=== PATIENT | male | born 1990 | race Caucasian/White ===

== ENCOUNTER 2018-01-25 16:10 | Emergency (ER) | payer BC ==
[~2018-01-25] VITALS: Ht 190.5 cm; Wt 127.4 kg
[2018-01-25 16:26] VITALS: TEMP 37.4; Ht 190.5 cm; Wt 127.4 kg
[2018-01-25] MEDS ORDERED: SODIUM CHLORIDE 0.9% 1000ML 1,000 ML IV STA (18:24)
[2018-01-25] MEDS ORDERED: KETOROLAC TROMETHAMINE 30 MG/ML VIAL IV STA (18:24)
[2018-01-25] MEDS ORDERED: OPTIRAY 320 IV PRN (18:30)
[2018-01-25 18:43] LABS: BASO % 0.1 %; BASO ABS # 0.01 K/uL (0-0.2); EOS % 1.3 %; EOS ABS # 0.15 K/uL (0-0.5); HEMATOCRIT 45.4 % (42-52); HEMOGLOBIN 15.6 g/dL (14.0-18.0); IG# 0.04 K/uL (0.00-0.02); LYMPH % 26.1 %; LYMPH ABS # 3.04 K/uL (1.2-3.4); MEAN CELL VOLUME 85.8 fL (80-100); MEAN CORPUSCULAR HEMOGLOBIN 29.5 pg (25-34); MEAN CORPUSCULAR HGB CONC 34.4 g/dl (32-36); MEAN PLATELET VOLUME 10.3 fL (7.4-10.4); MONO % 9.2 %; MONO ABS # 1.07 K/uL (0.11-0.59); NEUT ABS # 7.32 K/uL (1.4-6.5); PLATELET COUNT 293 K/uL (130-400); RED CELL DISTRIBUTION WIDTH CV 12.9 % (11.5-14.5); RED CELL DISTRIBUTION WIDTH SD 40.6 fL (36.4-46.3); WHITE BLOOD COUNT 11.63 K/uL (4.8-10.8)
[2018-01-25 19:05] LABS: ALBUMIN 4.2 gm/dl (3.4-5.0); CREATININE 1.3 mg/dl (0.60-1.40); POTASSIUM 3.9 mmol/L (3.5-5.1); TOTAL PROTEIN 8.3 gm/dl (6.4-8.2)
--- NOTE | 2018-01-25 20:39 | DIAGNOSTIC IMAGING REPORT ---
ABD/PELVIS IV CONTRAST ONLY CLINICAL HISTORY: 27 years-old Male presenting with abd pain infra umbilical . TECHNIQUE: Multidetector CT of the abdomen and pelvis was performed after the administration of intravenous contrast. IV contrast: 114 mL of Optiray 320. A dose lowering technique was used consistent with the principles of ALARA (as low as reasonably achievable). COMPARISON: None. CT DOSE (mGy.cm): The estimated cumulative dose is 964.07 mGy.cm. 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 Lung bases: Minimal basilar opacities, likely atelectasis. Normal heart size. No pericardial or pleural effusion. Liver: Normal morphology. No liver lesion. Patent hepatic vasculature. Biliary: No intrahepatic or extrahepatic biliary ductal dilatation. Normal gallbladder. Pancreas: Normal. Spleen: Normal. Adrenal glands: Normal. Kidneys and ureters: 3.7 cm lesion arising from the lateral aspect of the upper pole the right kidney with a density not consistent with cyst. This lesion may represent a complex cyst with solid components given the heterogeneity of its appearance. No additional lesion. No nephrolithiasis. No hydronephrosis. Bladder: Incompletely evaluated secondary to underdistention. Pelvic organs: Prostate and seminal vesicles normal. Bowel: Normal appendix. No bowel obstruction. Nonspecific intramural fat deposition and extended length of distal ileum. Peritoneal cavity: Infiltration of fat in the anterior left mid abdomen (series 3 image 262). No free intraperitoneal fluid or gas. Lymph nodes: No enlarged lymph nodes in the abdomen or pelvis. Vasculature: Aorta and IVC patent and normal in caliber. Abdominal wall: Small fat-containing umbilical hernia. Musculoskeletal: Normal. IMPRESSION: 1. Focus of infiltrated fat in the anterior left mid abdomen. This may represent an omental infarct or epiploic appendagitis. 2. Extensive intramural fat deposition in the distal ileum. This is nonspecific but can be seen in the setting of chronic inflammation, long-term steroid exposure, prior chemotherapy, or obesity among other etiologies. 3. 3.7 cm lesion in the right kidney, which may represent a complex partially cystic partially solid cyst versus less likely a proteinaceous or hemorrhagic cyst. Definitive characterization with contrast-enhanced renal MRI recommended. Urologic consultation is also necessary. Primary care physician (PCP) and/or surgical follow-up recommended until clinical, surgical, or pathologic diagnosis established. Electronically signed by: Alejandro Albright M.D. 01/25/2018 8:37 PM Dictated Date/Time: 01/25/2018 8:28 PM
[2018-01-25 20:46] VITALS: BP 108/70; PULSE 81; O2SAT 97
--- NOTE | 2018-01-26 00:25 | EMERGENCY ROOM VISIT NOTE ---
History Report prepared by Stacia: Joanna Gupta Under the Supervision of: Dr. Ace Farrell D.O. First contact with patient: 18:16 Chief Complaint: ABDOMINAL PAIN Stated Complaint: STOMACH PAIN History of Present Illness The patient is a 27 year old male who presents to the Emergency Room with complaints of constant lower abdominal pain beginning this morning. He notes he has no appetite, but denies any nausea or vomiting. The patient reports the pain began on both sides of his abdomen but is now worst in the left side, and notes it does not radiate to his back. He mentions he was seen at [facility] and referred to the ED for concerns about his appendix. The patient states he still has both his appendix and gallbladder. He notes bending over, laughing, and inhaling worsen his pain. He denies pain or swelling in testicles, or pain with urination. The patient denies any history of diverticulitis or abdominal surgery. Source of History: patient Onset: this morning Position: abdomen Timing: constant Modifying Factors (Worsening): breathing, other (bending over, laughing) Associated Symptoms: No back pain, No urinary symptoms Note: Denies: pain or swelling in testicles Review of Systems See HPI for pertinent positives & negatives. A total of 10 systems reviewed and were otherwise negative. Past Medical & Surgical Medical Problems: (1) No chronic problems Epiploic appendagitis Kidney mass Family History No pertinent family history stated. Social History Smoking Status: Former Smoker Smokeless Tobacco Use: No Occupation Status: employed Current/Historical Medications No Active Prescriptions or Reported Meds Allergies Coded Allergies: No Known Allergies (Unverified , 01/25/18) Physical Exam Vital Signs Date Time Temp Pulse Resp B/P (MAP) Pulse Ox O2 Delivery O2 Flow Rate FiO2 01/25/18 20:46 81 16 108/70 97 Room Air 01/25/18 18:48 82 157/84 96 Room Air 01/25/18 16:26 37.4 96 18 170/110 96 Room Air Physical Exam GENERAL: Sitting up in bed, alert, well appearing, well nourished, no distress, non-toxic, slightly uncomfortable. EYE EXAM: normal conjunctiva. OROPHARYNX: no exudate, no erythema, lips, buccal mucosa, and tongue normal and mucous membranes are moist NECK: supple, no nuchal rigidity, no adenopathy, non-tender LUNGS: Clear to auscultation. Normal chest wall mechanics HEART: no murmurs, S1 normal and S2 normal ABDOMEN: abdomen soft, tender to palpation infraumbilically, normo-active bowel sounds, no masses, no rebound or guarding. BACK: Back is symmetrical on inspection and there is no deformity, no midline tenderness, no CVA tenderness. SKIN: no rashes and no bruising UPPER EXTREMITIES: upper extremities are grossly normal. LOWER EXTREMITIES: No pitting edema. NEURO EXAM: Normal sensorium, cranial nerves II-XII grossly intact, normal speech, no gross weakness of arms, no gross weakness of legs. Medical Decision & Procedures ER Provider Diagnostic Interpretation: Radiology results as stated below per my review and the radiologist's interpretation: ABD/PELVIS IV CONTRAST ONLY CLINICAL HISTORY: 27 years-old Male presenting with abd pain infra umbilical . TECHNIQUE: Multidetector CT of the abdomen and pelvis was performed after the administration of intravenous contrast. IV contrast: 114 mL of Optiray 320. A dose lowering technique was used consistent with the principles of ALARA (as low as reasonably achievable). COMPARISON: None. CT DOSE (mGy.cm): The estimated cumulative dose is 964.07 mGy.cm. 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 Lung bases: Minimal basilar opacities, likely atelectasis. Normal heart size. No pericardial or pleural effusion. Liver: Normal morphology. No liver lesion. Patent hepatic vasculature. Biliary: No intrahepatic or extrahepatic biliary ductal dilatation. Normal gallbladder. Pancreas: Normal. Spleen: Normal. Adrenal glands: Normal. Kidneys and ureters: 3.7 cm lesion arising from the lateral aspect of the upper pole the right kidney with a density not consistent with cyst. This lesion may represent a complex cyst with solid components given the heterogeneity of its appearance. No additional lesion. No nephrolithiasis. No hydronephrosis. Bladder: Incompletely evaluated secondary to underdistention. Pelvic organs: Prostate and seminal vesicles normal. Bowel: Normal appendix. No bowel obstruction. Nonspecific intramural fat deposition and extended length of distal ileum. Peritoneal cavity: Infiltration of fat in the anterior left mid abdomen (series 3 image 262). No free intraperitoneal fluid or gas. Lymph nodes: No enlarged lymph nodes in the abdomen or pelvis. Vasculature: Aorta and IVC patent and normal in caliber. Abdominal wall: Small fat-containing umbilical hernia. Musculoskeletal: Normal. IMPRESSION: 1. Focus of infiltrated fat in the anterior left mid abdomen. This may represent an omental infarct or epiploic appendagitis. 2. Extensive intramural fat deposition in the distal ileum. This is nonspecific but can be seen in the setting of chronic inflammation, long-term steroid exposure, prior chemotherapy, or obesity among other etiologies. 3. 3.7 cm lesion in the right kidney, which may represent a complex partially cystic partially solid cyst versus less likely a proteinaceous or hemorrhagic cyst. Definitive characterization with contrast-enhanced renal MRI recommended. Urologic consultation is also necessary. Primary care physician (PCP) and/or surgical follow-up recommended until clinical, surgical, or pathologic diagnosis established. Electronically signed by: Alejandro Albright M.D. 01/25/2018 8:37 PM Dictated Date/Time: 01/25/2018 8:28 PM Laboratory Results 01/25/18 18:32 Red Blood Count 5.29, Mean Corpuscular Volume 85.8, Mean Corpuscular Hemoglobin 29.5, Mean Corpuscular Hemoglobin Concent 34.4, Mean Platelet Volume 10.3, Neutrophils (%) (Auto) 63.0, Lymphocytes (%) (Auto) 26.1, Monocytes (%) (Auto) 9.2, Eosinophils (%) (Auto) 1.3, Basophils (%) (Auto) 0.1, Neutrophils # (Auto) 7.32, Lymphocytes # (Auto) 3.04, Monocytes # (Auto) 1.07, Eosinophils # (Auto) 0.15, Basophils # (Auto) 0.01 01/25/18 18:32 Test 01/25/18 18:32 White Blood Count 11.63 K/uL (4.8-10.8) Red Blood Count 5.29 M/uL (4.7-6.1) Hemoglobin 15.6 g/dL (14.0-18.0) Hematocrit 45.4 % (42-52) Mean Corpuscular Volume 85.8 fL (80-100) Mean Corpuscular Hemoglobin 29.5 pg (25-34) Mean Corpuscular Hemoglobin Concent 34.4 g/dl (32-36) Platelet Count 293 K/uL (130-400) Mean Platelet Volume 10.3 fL (7.4-10.4) Neutrophils (%) (Auto) 63.0 % Lymphocytes (%) (Auto) 26.1 % Monocytes (%) (Auto) 9.2 % Eosinophils (%) (Auto) 1.3 % Basophils (%) (Auto) 0.1 % Neutrophils # (Auto) 7.32 K/uL (1.4-6.5) Lymphocytes # (Auto) 3.04 K/uL (1.2-3.4) Monocytes # (Auto) 1.07 K/uL (0.11-0.59) Eosinophils # (Auto) 0.15 K/uL (0-0.5) Basophils # (Auto) 0.01 K/uL (0-0.2) RDW Standard Deviation 40.6 fL (36.4-46.3) RDW Coefficient of Variation 12.9 % (11.5-14.5) Immature Granulocyte % (Auto) 0.3 % Immature Granulocyte # (Auto) 0.04 K/uL (0.00-0.02) Urine Color DK YELLOW Urine Appearance CLEAR (CLEAR) Urine pH 5.5 (4.5-7.5) Urine Specific [facility] 1.026 (1.000-1.030) Urine Protein NEG (NEG) Urine Glucose (UA) NEG (NEG) Urine Ketones TRACE (NEG) Urine Occult Blood NEG (NEG) Urine Nitrite NEG (NEG) Urine Bilirubin NEG (NEG) Urine Urobilinogen NEG (NEG) Urine Leukocyte Esterase NEG (NEG) Urine WBC (Auto) 0 /hpf (0-5) Urine RBC (Auto) 0-4 /hpf (0-4) Urine Hyaline Casts (Auto) 0 /lpf (0-5) Urine Epithelial Cells (Auto) 0-5 /lpf (0-5) Urine Bacteria (Auto) NEG (NEG) Anion Gap 6.0 mmol/L (3-11) Est Creatinine Clear Calc Drug Dose 120.6 ml/min Estimated GFR () 85.5 Estimated GFR (Non- 73.7 BUN/Creatinine Ratio 7.9 (10-20) Calcium Level 9.0 mg/dl (8.5-10.1) Total Bilirubin 0.7 mg/dl (0.2-1) Direct Bilirubin 0.1 mg/dl (0-0.2) Aspartate Amino Transf (AST/SGOT) 35 U/L (15-37) Alanine Aminotransferase (ALT/SGPT) 62 U/L (12-78) Alkaline Phosphatase 78 U/L (45-117) Total Protein 8.3 gm/dl (6.4-8.2) Albumin 4.2 gm/dl (3.4-5.0) Lipase 58 U/L (73-393) Laboratory results per my review. Medications Administered Medications (Trade) Dose Ordered Sig/Delfina Route Start Time Stop Time Status Last Admin Dose Admin Sodium Chloride 1,000 ml @ 999 mls/hr Q1H1M STAT IV 01/25/18 18:24 18 19:24 DC 01/25/18 18:48 999 MLS/HR Ketorolac Tromethamine (Toradol Inj) 30 mg NOW STAT IV 01/25/18 18:24 01/25/18 18:25 DC 01/25/18 18:48 30 MG ED Course ED COURSE: Vital signs were reviewed and showed hypertension. The patients medical record was reviewed The above diagnostic studies were performed and reviewed. ED treatments and interventions as stated above. 1820: The patient was evaluated in room B2. A complete history and physical examination was performed. []: Upon reevaluation, the patient is []. I discussed my findings with the [ patient] and [] understands and agrees with the treatment plan. Based on the patients age, coexisting illnesses, exam and lab findings the decision to treat as an [inpatient][outpatient] was made. The patient remained stable while under my care. [The patient appeared well at the time of discharge.] [The patient will be evaluated for further management.] Medical Decision Differential diagnoses includes but is not limited to gastritis, peptic ulcer disease, GERD, gallbladder disease, pancreatitis, small bowel obstruction, acute coronary syndrome, pericarditis, ischemic bowel, irritable bowel disease, irritable bowel syndrome, appendicitis, diverticulitis, malignancy, hernia, urinary tract infection, torsion, perforation, trauma, infectious. Patient is a 27-year-old male that presents to ER with left lower/ infraumbilically abdominal pain. Labs showed no significant leukocytosis or anemia. BMP was unremarkable along with LFTs, bilirubin lipase. UA was negative. CT abdomen pelvis shows likely epiploic appendicitis versus omental infarct along with a 3.7 right kidney lesion and some intramural fat deposition in the distal ileum. He does not take any steroids and he denies any chronic pain in the right lower quadrant. Stressed the importance of following up with her PCP the next 24 hours with abdominal pain. Will take Tylenol or Motrin. Also follow-up with the right kidney lesion. Discussed with Pt concerning signs and symptoms to watch out for. Pt was instructed to follow up with their PCP and discussed with the patient their option to return to the ED at anytime for persistent or worsening symptoms. The appropriate anticipatory guidance and out- patient management, including indications for return to the emergency department , were explained at length to the patient and understood. Medication Reconcilliation Current Medication List: was personally reviewed by me Blood Pressure Screening Patient's blood pressure: Elevated blood pressure Blood pressure disposition: Elevated BP felt to be situational Impression Primary Impression: Epiploic appendagitis Additional Impression: Lesion of right chicken ranch kidney Scribe Attestation The scribe's documentation has been prepared under my direction and personally reviewed by me in its entirety. I confirm that the note above accurately reflects all work, treatment, procedures, and medical decision making performed by me. Departure Information Dispostion Home / Self-Care Prescriptions No Active Prescriptions or Reported Meds Referrals Julius Padilla M.D. (PCP) Forms HOME CARE DOCUMENTATION FORM, IMPORTANT VISIT INFORMATION Patient Instructions My [facility] Additional Instructions Please follow up with your primary care doctor with in the next 24 hours for repeat abdominal check. Any worsening of your symptoms, please return to the ED immediately. This includes any fevers greater than 100.4, worsening pain, chest pain, shortness breath, persistent nausea, vomiting, unable to eat or drink, or any other concerning signs or symptoms from your standpoint. Please take Tylenol or Motrin as needed for pain. You must follow-up in regards to the 3.7 cm lesion of the right kidney with your PCP within the next 1 week. 3.7 cm lesion in the right kidney, which may represent a complex partially cystic partially solid cyst versus less likely a proteinaceous or hemorrhagic cyst. Definitive characterization with contrast-enhanced renal MRI recommended. Urologic consultation is also necessary. Problem Qualifiers
== END 2018-01-25 21:15 | disposition home or self-care (01) ==
LOC: C.EDB 16:11
DX: K63.89 Other specified diseases of intestine (principal); Q43.8 Other specified congenital malformations of intestine; N28.89 Other specified disorders of kidney and ureter; Z87.891 Personal history of nicotine dependence